=== PATIENT | male | born 1970 | race Caucasian/White ===

== ENCOUNTER 2017-08-11 20:02 | Observation (INO) | payer BC ==
[2017-08-11 20:13] VITALS: BMI 34.2
--- NOTE | 2017-08-11 20:42 | PDOC ---
History of Present Illness - General History Source: Patient Exam Limitations: No Limitations - History of Present Illness Initial Comments: 08/11/17 22:15 The patient is a 47 year old male with a significant past medical history of HTN , HLD, and GERD who presents to the ED with chest pain since earlier today. The patient states he was working out on the elliptical at the gym when he developed mid sternal chest pain that radiates to his back and left shoulder blade. Patient states his chest pain is pressure like in sensation.He reports his heart rate was 223 while he was working out but states is it usually in the 160s when he works out. He notes he took his metoprolol after leaving the gym but states he hasn't taken it since Saturday. Patient states he had an Echo several months ago that showed an enlarged aorta and bicuspid valve. Social hx: Patient regularly works out at the gym and reports a 40 pound weight loss. The patient smokes half a pack of cigarettes everyday for the past 2 years. He also smokes marijuana daily and states he last smoked marijuana earlier today. <Tony Burns - Last Filed: 08/11/17 22:14> <Chanel Bullock - Last Filed: 08/11/17 23:32> - General Chief Complaint: Chest Pain Stated Complaint: CHEST PAIN Time Seen by Provider: 08/11/17 20:23 Past History <Tony Burns - Last Filed: 08/11/17 22:14> - Past Medical History COPD: No HTN: Yes Hypercholesterolemia: Yes Kidney Stones: Yes - Surgical History Abdominal Surgery: No - Suicide/Smoking/Psychosocial Hx Smoking Status: No Smoking History: Never smoked Have you smoked in the past 12 months: No Number of Cigarettes Smoked Daily: 10 Information on smoking cessation initiated: No Hx Alcohol Use: No Drug/Substance Use Hx: No Substance Use Type: None Hx Substance Use Treatment: No <Chanel Bullock - Last Filed: 08/11/17 23:32> - Past Medical History Allergies/Adverse Reactions: Allergies Allergy/AdvReac Type Severity Reaction Status Date / Time No Known Allergies Allergy Verified 08/11/17 20:06 Home Medications: Ambulatory Orders Acetaminophen [Tylenol] 650 mg PO Q6H PRN #0 tablet 04/21/12 Aspirin [ASA -] 325 mg PO DAILY #0 tablet 04/21/12 Hydromorphone HCl [Dilaudid] 2 mg PO PRN PRN #0 tablet 04/21/12 Metoprolol Tartrate [Lopressor -] 50 mg PO BID #0 tablet 04/21/12 Tamsulosin HCl [Flomax -] 0.4 mg PO DAILY #7 cap.er.24h 04/21/12 levoFLOXacin [Levaquin] 250 mg PO DAILY #0 tablet 04/21/12 Review of Systems - Review of Systems Able to Perform ROS?: Yes Comments:: 08/11/17 22:15 CONSTITUTIONAL: Absent: fever, chills, diaphoresis, generalized weakness, malaise, loss of appetite HEENT: Absent: rhinorrhea, nasal congestion, throat pain, throat swelling, difficulty swallowing, mouth swelling, ear pain, eye pain, visual Changes CARDIOVASCULAR: + chest pain with radiation to the back and left shoulder blade Absent: syncope, palpitations, irregular heart rate, lightheadedness, peripheral edema RESPIRATORY: Absent: cough, shortness of breath, dyspnea with exertion, orthopnea, wheezing, stridor, hemoptysis GASTROINTESTINAL: Absent: abdominal pain, abdominal distension, nausea, vomiting, diarrhea, constipation, melena, hematochezia GENITOURINARY: Absent: dysuria, frequency, urgency, hesitancy, hematuria, flank pain, genital pain MUSCULOSKELETAL: Absent: joint swelling SKIN: Absent: rash, itching, pallor HEMATOLOGIC/IMMUNOLOGIC: Absent: easy bleeding, easy bruising, lymphadenopathy, frequent infections ENDOCRINE: Absent: unexplained weight gain, unexplained weight loss, heat intolerance, cold intolerance NEUROLOGIC: Absent: headache, focal weakness or paresthesias, dizziness, unsteady gait, seizure, mental status changes, bladder or bowel incontinence PSYCHIATRIC: Absent: anxiety, depression, suicidal or homicidal ideation, hallucinations. All Other Systems: Reviewed and Negative <Tony Burns - Last Filed: 08/11/17 22:14> *Physical Exam - Vital Signs Last Vital Signs Temp Pulse Resp BP Pulse Ox 97.8 F 73 18 121/74 98 08/11/17 20:09 08/11/17 20:09 08/11/17 20:09 08/11/17 21:58 08/11/17 20:09 - Physical Exam Comments: 08/11/17 22:15 GENERAL: Well developed, well nourished. Awake and alert. No acute distress. HEENT: Normocephalic, atraumatic. PERRLA, EOMI. No conjunctival pallor. Sclera are non- icteric. Moist mucous membranes. Oropharynx is clear. NECK: Supple. Full ROM. No JVD. Carotid pulses 2+ and symmetric, without bruits. No thyromegaly. No lymphadenopathy. CARDIOVASCULAR: Regular rate and rhythm. No murmurs, rubs, or gallops. Distal pulses are 2+ and symmetric. PULMONARY: No evidence of respiratory distress. Lungs clear to auscultation bilaterally. No wheezing, rales or rhonchi. ABDOMINAL: Soft. Non-tender. Non-distended. No rebound or guarding. No organomegaly. Normoactive bowel sounds. MUSCULOSKELETAL Normal range of motion at all joints. No bony deformities or tenderness. No CVA tenderness. EXTREMITIES: No cyanosis. No clubbing. No edema. No calf tenderness. SKIN: Warm and dry. Normal capillary refill. No rashes. No jaundice. NEUROLOGICAL: Alert, awake, appropriate. Cranial nerves 2-12 intact. No deficits to light touch and temperature in face, upper extremities and lower extremities. No motor deficits in the in face, upper extremities and lower extremities. Normoreflexic in the upper and lower extremities. Normal speech. Toes are down- going bilaterally. Gait is normal without ataxia. PSYCHIATRIC: Cooperative. Good eye contact. Appropriate mood and affect. <Tony Burns - Last Filed: 08/11/17 22:14> - Vital Signs Last Vital Signs Temp Pulse Resp BP Pulse Ox 97.8 F 73 18 151/82 98 08/11/17 20:09 08/11/17 20:09 08/11/17 20:09 08/11/17 20:09 08/11/17 20:09 <Chanel Bullock - Last Filed: 08/11/17 23:32> Heart Score/ECG Review - History History: Slightly suspicious - Electrocardiogram EKG: Normal - Age Age: 45-65 - Risk Factors Risk Factors Heart Score: Yes Hx Hypercholesterolemia, Yes Hx Hypertension Based on the list above the patient has:: >/=3 risk factors or Hx atherosclerotic disease - Troponin Troponin: </= normal limit - Score Heart Score - Total: 3 - ECG Intrepretation Rhythm: Regular Rhythm - Falcon Falcon: Normal - ST and T Early Repolarization: No Non Specific ST-T Wave changes: No - ECG Impressions Normal ECG: Yes Ischemic Changes: No Torsades fly Pointes: No WPW: No Comment:: 08/11/17 20:42 PREMATURE ATRIAL CONTRACTIONS <Chanel Bullock - Last Filed: 08/11/17 23:32> ED Treatment Course - Medications Given in the ED: ED Medications Discontinued Medications Generic Name Dose Route Start Last Admin Trade Name Apurva PRN Reason Stop Dose Admin Aspirin 162 mg 08/11/17 20:56 08/11/17 21:58 Asa - PO 08/11/17 20:57 162 mg ONCE ONE Administration Metoprolol Tartrate 5 mg 08/11/17 20:55 08/11/17 21:58 Lopressor Injection - IVPUSH 08/11/17 20:56 Not Given ONCE ONE <Tony Burns - Last Filed: 08/11/17 22:14> - LABORATORY CBC & Chemistry Diagram: 08/11/17 21:43 08/11/17 21:43 - RADIOLOGY Radiology Studies Ordered: Category Date Time Status CHEST PA & LAT [RAD] Stat Radiology 08/11/17 20:25 Ordered <Chanel Bullock - Last Filed: 08/11/17 23:32> Medical Decision Making - Medical Decision Making 08/11/17 22:02 Pt missed a couple days of his [id number] and went to the gym today. He felt CP and noticed that his HR was up to 200s. Pt went home and the HR lasted. He took his toprol and came to the ER. Here BP was elevated on arrival. EKG is NSR.CXR pending. Labs pending. 08/11/17 23:26 Pt of Katelyn Carvajal. I called her covering doc Dr. Leslie who wants me to admit the patient to tele obs under the hospitalist. Pt has a normal 1st cardiac enzyme and currently feels better. ASA and toprol given to the patient. <Chanel Bullock - Last Filed: 08/11/17 23:32> *DC/Admit/Observation/Transfer - Attestations Scribe Attestion: 08/11/17 22:15 Documentation prepared by Tony Burns, acting as medical research assistant for Chanel Bullock MD <Tony Burns Last Filed: 08/11/17 22:14> - Discharge Dispostion Admit: Yes <Chanel Bullock - Last Filed: 08/11/17 23:32> Diagnosis at time of Disposition: Chest pain - Discharge Dispostion Condition at time of disposition: Guarded - Referrals Referrals: Katelyn Carvajal MD [Primary Care Provider] - - Patient Instructions - Post Discharge Activity
[2017-08-11] MEDS ORDERED: METOPROLOL TARTRATE 5 MG/5 ML VIAL IVPUSH ONE (20:55)
[2017-08-11] MEDS ORDERED: ASPIRIN 81 MG CHEWABLE TABLETS PO ONE (20:56)
[2017-08-11] MEDS ORDERED: METOPROLOL TARTRATE 5 MG/5 ML VIAL ONE (21:45)
[2017-08-11] MEDS ORDERED: ASPIRIN 81 MG CHEWABLE TABLETS ONE (21:45)
[2017-08-11 22:46] LABS: BASO % 0.9 % (0-2.0); EOS % 2.9 % (0-4.5); HEMATOCRIT 38.8 % (35.4-49); HEMOGLOBIN 13.4 GM/dL (11.7-16.9); LYMPH % 31.3 % (8-40); MCH 30.3 pg (25.7-33.7); MCHC 34.5 g/dl (32.0-35.9); MEAN CELL VOLUME 87.7 fl (80-96); MEAN PLT VOLUME 8.2 fl (7.5-11.1); MONO % 10.3 % (3.8-10.2); NEUT % 54.6 % (42.8-82.8); PLATELET COUNT 252 K/MM3 (134-434); RBC 4.42 M/mm3 (4.00-5.60); RDW 14.2 % (11.9-15.9)
[2017-08-11 23:02] LABS: INR 1.07 (0.82-1.09); PROTHROMBIN TIME (PATIENT) 12.1 SEC (9.7-13.0)
[2017-08-11 23:08] LABS: ALBUMIN 3.5 g/dl (3.4-5.0); ANION GAP 5 (8-16); BILIRUBIN,TOTAL 0.2 mg/dL (0.2-1.0); BLOOD UREA NITROGEN 17 mg/dL (7-18); CALCIUM 8.5 mg/dL (8.5-10.1); CHLORIDE 109 mmol/L (98-107); CO2 27 mmol/L (21-32); CREATININE 0.9 mg/dL (0.7-1.3); GLUCOSE,RANDOM 86 mg/dL (74-106); POTASSIUM 3.9 mmol/L (3.5-5.1); SGOT/AST 14 U/L (15-37); SGPT/ALT 17 U/L (12-78); SODIUM 141 mmol/L (136-145); TOT PROT 6.4 g/dl (6.4-8.2)
[2017-08-11 23:10] LABS: ALK PHOS 66 U/L (45-117)
--- NOTE | 2017-08-11 23:32 | PN ---
Teaching Attending Note Name of Resident: Suzanne Paz ATTENDING PHYSICIAN STATEMENT I saw and evaluated the patient. I reviewed the resident's note and discussed the case with the resident. I agree with the resident's findings and plan as documented. SUBJECTIVE: 47 yo M with pmhx. of HTN, HLD, and GERD who presents with chest pain. States he was working out when he had his chest pain. States his pain is more pressure like. Notes when he was working out his HR went to 223. Notes prior to today, he had not taken his Metoprolol since Saturday. States his last echo was a couple of months ago. OF note as per patient chest pressure was mid-sternal and NON- RADIATING. States his pain went away after several minutes and has not reoccurred. Denies any shortness of breath, chest pain, or pressure. No N, V, D. States he was on the Elliptical when the chest pressure happened OBJECTIVE: Physical: VS: Vital Signs Period Temp Pulse Resp BP Sys/Blair Pulse Ox Last 24 Hr 97.8 F 73 18 121-151/74-82 98-100 GEN: NAD, obese male, resting in bed, AAOX3 HEENT: NCAT, PERRL, Throat without erythema or exudates CARD: RRR S1, S2 RESP: CTAB ABD: BSx4, NTD to palpation EXT: - C/C/E CBCD WBC 8.0 K/mm3 (4.0-10.0) 08/11/17 21:43 RBC 4.42 M/mm3 (4.00-5.60) 08/11/17 21:43 Hgb 13.4 GM/dL (11.7-16.9) 08/11/17 21:43 Hct 38.8 % (35.4-49) 08/11/17 21:43 MCV 87.7 fl (80-96) 08/11/17 21:43 MCHC 34.5 g/dl (32.0-35.9) 08/11/17 21:43 RDW 14.2 % (11.9-15.9) 08/11/17 21:43 Plt Count 252 K/MM3 (134-434) 08/11/17 21:43 MPV 8.2 fl (7.5-11.1) 08/11/17 21:43 CMP Sodium 141 mmol/L (136-145) 08/11/17 21:43 Potassium 3.9 mmol/L (3.5-5.1) 08/11/17 21:43 Chloride 109 mmol/L (98-107) H 08/11/17 21:43 Carbon Dioxide 27 mmol/L (21-32) 08/11/17 21:43 Anion Gap 5 (8-16) L 08/11/17 21:43 BUN 17 mg/dL (7-18) D 08/11/17 21:43 Creatinine 0.9 mg/dL (0.7-1.3) D 08/11/17 21:43 Creat Clearance w eGFR > 60 (>60) 08/11/17 21:43 Random Glucose 86 mg/dL (74-106) 08/11/17 21:43 Calcium 8.5 mg/dL (8.5-10.1) 08/11/17 21:43 Total Bilirubin 0.2 mg/dL (0.2-1.0) D 08/11/17 21:43 AST 14 U/L (15-37) L D 08/11/17 21:43 ALT 17 U/L (12-78) 08/11/17 21:43 Alkaline Phosphatase 66 U/L (45-117) 08/11/17 21:43 Total Protein 6.4 g/dl (6.4-8.2) 08/11/17 21:43 Albumin 3.5 g/dl (3.4-5.0) 08/11/17 21:43 CARDIAC ENZYMES Creatine Kinase 99 IU/L (39-308) 08/11/17 21:43 Troponin I < 0.02 ng/ml (0.00-0.05) 08/11/17 21:43 EKG: CXR: PENDING ASSESSMENT AND PLAN: 47 yo M with pmhx. of HTN, HLD, and GERD who presents with chest pain. 1.) CHEST PAIN - RO ACS - Trend Trop/EKG - ASA - 02 - BB- Recieved Metoprolol in ED - Nitro/Morphine prn pain - TSH - Echo report 2. DVT Ppx - SCDs Place in Obs-Tele
[2017-08-12] MEDS ORDERED: NITROGLYCERIN SUBLINGUAL 1/150 0.4 MG TAB SL PRN (00:18)
--- NOTE | 2017-08-12 00:36 | HP ---
CHIEF COMPLAINT: Chest Pain PCP: Dr Katelyn Carvajal HISTORY OF PRESENT ILLNESS: 47yo M with PMHx of HTN, HLD, GERD who presented to the ER w/ chest pain. This AM after eating breakfast, he was at the gym using the elliptical when he developed midsternal chest pressure. He was wearing a HR monitor, noted his HR was in the 220s. When he rested, HR came down, and CP resolved. Denies SOB, diaphoresis, heartburn. [place] nauseous afterward. Never had CP before, never had HR >170s before. Not compliant w/ metoprolol. Sees a peanut vendor for HTN, told he has enlarged aorta and bicuspid aortic valve on echo. In the ER, he was hemodynamically stable. EKG shows q waves in inferior leads, unchanged from prior. CXR wnl. First set of trops neg. Pt was given lopressor 5 and loading ASA. Recent Travel: Denies PAST MEDICAL HISTORY: HTN, HLD, GERD PAST SURGICAL HISTORY: Foot surgery Social History: Smokin.5ppd smoker for 2 years Alcohol: Denies Drugs: Marijuana daily Family History: Allergies No Known Allergies Allergy (Verified 08/11/17 20:06) HOME MEDICATIONS: Home Medications Medication Instructions Recorded Acetaminophen [Tylenol] 650 mg PO Q6H PRN #0 tablet 04/21/12 Aspirin [ASA -] 325 mg PO DAILY #0 tablet 04/21/12 Hydromorphone HCl [Dilaudid] 2 mg PO PRN PRN #0 tablet 04/21/12 Metoprolol Tartrate [Lopressor -] 50 mg PO BID #0 tablet 04/21/12 Tamsulosin HCl [Flomax -] 0.4 mg PO DAILY #7 cap.er.24h 04/21/12 REVIEW OF SYSTEMS CONSTITUTIONAL: Absent: fever, chills, diaphoresis, generalized weakness, malaise, loss of appetite, weight change HEENT: Absent: rhinorrhea, nasal congestion, throat pain, throat swelling, difficulty swallowing, mouth swelling, ear pain, eye pain, visual changes CARDIOVASCULAR: Absent: chest pain, syncope, palpitations, irregular heart rate , lightheadedness, peripheral edema RESPIRATORY: Absent: cough, shortness of breath, dyspnea with exertion, orthopnea, wheezing, stridor, hemoptysis GASTROINTESTINAL:Absent: abdominal pain, abdominal distension, nausea, vomiting , diarrhea, constipation, melena, hematochezia GENITOURINARY: Absent: dysuria, frequency, urgency, hesitancy, hematuria, flank pain, genital pain MUSCULOSKELETAL: Absent: myalgia, arthralgia, joint swelling, back pain, neck pain SKIN: Absent: rash, itching, pallor HEMATOLOGIC/IMMUNOLOGIC: Absent: easy bleeding, easy bruising, lymphadenopathy, frequent infections ENDOCRINE:Absent: unexplained weight gain, unexplained weight loss, heat intolerance, cold intolerance NEUROLOGIC: Absent: headache, focal weakness or paresthesias, dizziness, unsteady gait, seizure, mental status changes, bladder or bowel incontinence PSYCHIATRIC: Absent: anxiety, depression, suicidal or homicidal ideation, hallucinations. PHYSICAL EXAMINATION Vital Signs Period Temp Pulse Resp BP Sys/Blair Pulse Ox Last 24 Hr 97.8 F 73 18 121-151/74-82 98-100 GEN: AAOx3, NAD, distant affect HEENT: PERRLA, EOmi, no JVD CV: S1, S2, RRR w/ extra beats LUNG: CTABL ABD: OBese, distended, nontender MSK: No edema, no erythema NEURO: CN 2-12 intact, no snsation or msk deficits ASSESSMENT/PLAN: 47yo M with PMHx of HTN, HLD, GERD who presented to the ER w/ chest pain after working out # Chest Pain -- Most likely demand from tachycardia (above maximum HR for age). HEART score 3 indicates low risk. R/o ACS, observe until second trop. O2. Nitro prn. TSH. Monitor on tele. # Hx of HTN -- Non-compliant w/ meds, given Lopressor in ER. Continue home meds # ?Bicuspid Aortic Valve -- On outpatient echo as per patient. No need to repeat echo here. Can obtain records if needed # HLD -- Continue crestor # MDD -- Continue antidepressants # FEN/pPx -- No ivf, sodium controlled diet, SCDs # Dispo -- Tele obs Case d/w Dr Paz & Dr Mike Maravilla MD - [id number] Night Chief Analytics Officer Visit type - Emergency Visit Emergency Visit: Yes ED Registration Date: 08/11/17 Care time: The patient presented to the Emergency Department on the above date and was hospitalized for further evaluation of their emergent condition. - New Patient This patient is new to me today: No - Critical Care Critical Care patient: No Hospitalist Screening - Colonoscopy Questionnaire Colonoscopy Questionnaire: Colonoscopy Questionnaire - Patient: 50 - 75 years old and never had a screening colonoscopy: Unknown History of colon or rectal polyps, or CA: Unknown History of IBD, Crohn's disease or UC: Unknown History of abdominal radiation therapy as a child: Unknown - Relative: 1 with colon or rectal CA, or polyps at age 60 or younger: Unknown Colon or rectal CA diagnosed at age 45 or younger: Unknown Multiple relatives with colon or rectal CA: Unknown - Outcome: Screening Result: Negative Screen
[2017-08-12 06:13] LABS: HEMATOCRIT 39.5 % (35.4-49); HEMOGLOBIN 13.4 GM/dL (11.7-16.9); MCH 29.4 pg (25.7-33.7); MCHC 33.9 g/dl (32.0-35.9); MEAN CELL VOLUME 86.8 fl (80-96); MEAN PLT VOLUME 7.7 fl (7.5-11.1); PLATELET COUNT 263 K/MM3 (134-434); RBC 4.54 M/mm3 (4.00-5.60); RDW 14.2 % (11.9-15.9); WHITE BLOOD COUNT 6.2 K/mm3 (4.0-10.0)
[2017-08-12 06:42] LABS: ANION GAP 5 (8-16); BLOOD UREA NITROGEN 15 mg/dL (7-18); CALCIUM 8.1 mg/dL (8.5-10.1); CHLORIDE 110 mmol/L (98-107); CO2 26 mmol/L (21-32); GLUCOSE,RANDOM 88 mg/dL (74-106); MAGNESIUM 2.2 mg/dL (1.8-2.4); POTASSIUM 3.9 mmol/L (3.5-5.1); SODIUM 141 mmol/L (136-145)
[2017-08-12 06:53] LABS: CREATININE 0.8 mg/dL (0.7-1.3); PHOSPHOROUS 3.3 mg/dL (2.5-4.9)
[2017-08-12 09:33] VITALS: BP 137/72; PULSE 72; TEMP 98
[2017-08-12] MEDS ORDERED: ASPIRIN 81 MG CHEWABLE TABLETS PO SCH (10:00)
[2017-08-12] MEDS ORDERED: METOPROLOL TARTRATE 50 MG TABLET (FP) PO SCH (10:00)
[2017-08-12] MEDS ORDERED: ESCITALOPRAM OXALATE 20 MG TABLET (FP) PO SCH (10:00)
--- NOTE | 2017-08-12 10:42 | EKG ---
Test Reason : Blood Pressure : / mmHG Vent. Rate : 075 BPM Atrial Rate : 075 BPM P-R Int : 172 ms QRS Dur : 096 ms QT Int : 408 ms P-R-T Axes : 045 -02 040 degrees QTc Int : 455 ms SINUS RHYTHM WITH PREMATURE ATRIAL COMPLEXES INFERIOR INFARCT , AGE UNDETERMINED ABNORMAL ECG WHEN COMPARED WITH ECG OF 02-OCT-2011 12:46, PREMATURE ATRIAL COMPLEXES ARE NOW PRESENT NONSPECIFIC T WAVE ABNORMALITY NO LONGER EVIDENT IN LATERAL LEADS Confirmed by YARIEL BURRELL MD ([id number]) on 08/12/2017 10:41:54 AM Referred By: Confirmed By:YARIEL BURRELL MD
--- NOTE | 2017-08-12 14:27 | PN ---
Teaching Attending Note Name of Resident: Taylor Jose Bailey ATTENDING PHYSICIAN STATEMENT I saw and evaluated the patient. I reviewed the resident's note and discussed the case with the resident. I agree with the resident's findings and plan as documented. SUBJECTIVE: OBJECTIVE: Vital Signs Period Temp Pulse Resp BP Sys/Blair Pulse Ox Last 24 Hr 97.7 F-98.0 F 72-77 18-19 121-151/62-82 98-100 Laboratory Results - last 24 hr 08/11/17 08/11/17 08/11/17 21:43 21:43 21:43 WBC 8.0 RBC 4.42 Hgb 13.4 Hct 38.8 MCV 87.7 MCH 30.3 MCHC 34.5 RDW 14.2 Plt Count 252 MPV 8.2 Neutrophils % 54.6 D Lymphocytes % 31.3 D Monocytes % 10.3 H D Eosinophils % 2.9 D Basophils % 0.9 D PT with INR 12.10 INR 1.07 PTT (Actin FS) Sodium 141 Potassium 3.9 Chloride 109 H Carbon Dioxide 27 Anion Gap 5 L BUN 17 D Creatinine 0.9 D Creat Clearance w eGFR > 60 Random Glucose 86 Calcium 8.5 Phosphorus Magnesium Total Bilirubin 0.2 D AST 14 L D ALT 17 Alkaline Phosphatase 66 Creatine Kinase 99 Troponin I < 0.02 Total Protein 6.4 Albumin 3.5 TSH 08/11/17 08/12/17 08/12/17 21:58 05:56 05:56 WBC 6.2 RBC 4.54 Hgb 13.4 Hct 39.5 MCV 86.8 MCH 29.4 MCHC 33.9 RDW 14.2 Plt Count 263 MPV 7.7 Neutrophils % Lymphocytes % Monocytes % Eosinophils % Basophils % PT with INR INR PTT (Actin FS) 26.7 L Sodium 141 Potassium 3.9 Chloride 110 H Carbon Dioxide 26 Anion Gap 5 L BUN 15 Creatinine 0.8 Creat Clearance w eGFR Random Glucose 88 Calcium 8.1 L Phosphorus 3.3 Magnesium 2.2 Total Bilirubin AST ALT Alkaline Phosphatase Creatine Kinase Troponin I Total Protein Albumin TSH 1.03 08/12/17 05:56 WBC RBC Hgb Hct MCV MCH MCHC RDW Plt Count MPV Neutrophils % Lymphocytes % Monocytes % Eosinophils % Basophils % PT with INR INR PTT (Actin FS) Sodium Potassium Chloride Carbon Dioxide Anion Gap BUN Creatinine Creat Clearance w eGFR Random Glucose Calcium Phosphorus Magnesium Total Bilirubin AST ALT Alkaline Phosphatase Creatine Kinase 83 Troponin I < 0.02 Total Protein Albumin TSH ASSESSMENT AND PLAN:
--- NOTE | 2017-08-12 21:27 | DS ---
Physical Exam: SUBJECTIVE: Patient seen and examined. Patient feels better this am. No chest pain or shortness of breath, no new complaints. Repeat trops are negative. Would like to go home. OBJECTIVE: Vital Signs Period Temp Pulse Resp BP Sys/Blair Pulse Ox Last 24 Hr 97.7 F-98.0 F 72-77 18-19 121-137/62-74 98-99 Vital Signs Temp 98.0 F 08/12/17 09:32 Pulse 72 08/12/17 09:32 Resp 18 08/12/17 09:32 BP 137/72 08/12/17 09:32 Pulse Ox 98 08/12/17 09:32 PHYSICAL EXAM GENERAL: The patient is awake, alert, and fully oriented, in no acute painful or respiratory distress. EYES: PERRL, extraocular movements intact ENT: moist mucous membranes. NECK: supple. LUNGS: Breath sounds equal, clear to auscultation bilaterally HEART: Regular rate and rhythm, S1, S2 without murmur, rub or gallop. ABDOMEN: Soft, nontender, nondistended, normoactive bowel sounds EXTREMITIES: 2+ pulses, warm, well-perfused, no edema. NEUROLOGICAL: Cranial nerves II through XII grossly intact. Normal speech, normal gait LABS CBC, BMP 08/12/17 05:56 08/12/17 05:56 Laboratory Results - last 24 hr 08/11/17 08/11/17 08/11/17 21:43 21:43 21:43 WBC 8.0 RBC 4.42 Hgb 13.4 Hct 38.8 MCV 87.7 MCH 30.3 MCHC 34.5 RDW 14.2 Plt Count 252 MPV 8.2 Neutrophils % 54.6 D Lymphocytes % 31.3 D Monocytes % 10.3 H D Eosinophils % 2.9 D Basophils % 0.9 D PT with INR 12.10 INR 1.07 PTT (Actin FS) Sodium 141 Potassium 3.9 Chloride 109 H Carbon Dioxide 27 Anion Gap 5 L BUN 17 D Creatinine 0.9 D Creat Clearance w eGFR > 60 Random Glucose 86 Calcium 8.5 Phosphorus Magnesium Total Bilirubin 0.2 D AST 14 L D ALT 17 Alkaline Phosphatase 66 Creatine Kinase 99 Troponin I < 0.02 Total Protein 6.4 Albumin 3.5 TSH 08/11/17 08/12/17 08/12/17 21:58 05:56 05:56 WBC 6.2 RBC 4.54 Hgb 13.4 Hct 39.5 MCV 86.8 MCH 29.4 MCHC 33.9 RDW 14.2 Plt Count 263 MPV 7.7 Neutrophils % Lymphocytes % Monocytes % Eosinophils % Basophils % PT with INR INR PTT (Actin FS) 26.7 L Sodium 141 Potassium 3.9 Chloride 110 H Carbon Dioxide 26 Anion Gap 5 L BUN 15 Creatinine 0.8 Creat Clearance w eGFR Random Glucose 88 Calcium 8.1 L Phosphorus 3.3 Magnesium 2.2 Total Bilirubin AST ALT Alkaline Phosphatase Creatine Kinase Troponin I Total Protein Albumin TSH 1.03 08/12/17 05:56 WBC RBC Hgb Hct MCV MCH MCHC RDW Plt Count MPV Neutrophils % Lymphocytes % Monocytes % Eosinophils % Basophils % PT with INR INR PTT (Actin FS) Sodium Potassium Chloride Carbon Dioxide Anion Gap BUN Creatinine Creat Clearance w eGFR Random Glucose Calcium Phosphorus Magnesium Total Bilirubin AST ALT Alkaline Phosphatase Creatine Kinase 83 Troponin I < 0.02 Total Protein Albumin TSH HOSPITAL COURSE: Date of Admission:08/11/17 Date of Discharge: 08/12/17 Pt is a 47 yo M with PMHx of HTN, HLD, GERD who presented to the ER with a hx of chest pain while working out in the gym # Chest Pain -- Most likely demand from tachycardia (220bpm-above maximum HR for age). Resolved prior to presentation in the ED HEART score 3 indicates low risk. R/o ACS, first and second trop were negative. O2 PRN. Nitro prn. TSH. Monitor on tele. Follow up with audiology assistant for likely stress test # Hx of HTN -- Non-compliant w/ meds, Given Lopressor in ER. Continue home meds Follow up with audiology assistant as an outpatient # Hx of Bicuspid Aortic Valve -- Diagnosed per px on outpatient echo # HLD -- Continue crestor # MDD -- Continue antidepressants # FEN/pPx -- sodium controlled diet, Minutes to complete discharge: 37 Discharge Summary Reason For Visit: CHEST PAIN Condition: Stable - Instructions Diet, Activity, Other Instructions: You were seen here for chest pain and rapid heart rate while exercising in the gym We ran tests that did not show any heart damage suggestive of a heart attack Please follow up with your audiology assistant (Shay Garcia) to have a stress test done on SaturdayAugust 19 at 4.30pm at [address] [place] [address] (the appointment has been made for you) Please resume your home medications for hypertension, high lipids and GERD Follow up with your primary care doctor within a week If you have worsening symptoms, please return to the emergency room Referrals: Katelyn Carvajal MD [Primary Care Provider] - 1 Week Disposition: HOME - Home Medications Comprehensive Discharge Medication List: Ambulatory Orders Bupropion HCl [Wellbutrin Sr] 150 mg PO DAILY 08/12/17 Escitalopram Oxalate [Lexapro -] 20 mg PO DAILY 08/12/17 Metoprolol Tartrate [Lopressor -] 50 mg PO DAILY 08/12/17 Rosuvastatin Calcium [Crestor] 10 mg PO HS 08/12/17 This patient is new to me today: Yes Date on this admission: 08/12/17 Emergency Visit: Yes ED Registration Date: 08/11/17 Care time: The patient presented to the Emergency Department on the above date and was hospitalized for further evaluation of their emergent condition. Critical Care patient: No - Discharge Referral Referred to [facility] No
[2017-08-12] MEDS ORDERED: ROSUVASTATIN CA 10 MG TABLET (FP) PO SCH (22:00)
== END 2017-08-12 09:33 | disposition home or self-care (01) ==
LOC: JER 20:02 → JERBED 23:32
PROVIDERS: ADMIT Internal Medicine; ATTEND Internal Medicine
DX: R07.9 Chest pain, unspecified (principal); I10 Essential (primary) hypertension; E78.5 Hyperlipidemia, unspecified; K21.9 Gastro-esophageal reflux disease without esophagitis; F33.9 Major depressive disorder, recurrent, unspecified; Z79.82 Long term (current) use of aspirin
CPT/HCPCS: 36415; 71046-TC-FY; 80048; 80053; 82550; 83735; 84100; 84443; 84484; 85025; 85027; 85610; 85730; 93005; 93010; 99285-25; G0378

== ENCOUNTER 2024-09-03 05:51 | Day surgery (SDC) | payer OTHER ==
[2024-08-27 11:49] VITALS: BMI 32.5
[2024-09-03 08:46] VITALS: TEMP 97.5
[2024-09-03 09:15] VITALS: PULSE 73
[2024-09-03 09:17] VITALS: BP 130/66; RESP 14
== END 2024-09-03 09:19 | disposition home or self-care (01) ==
LOC: JASU-ENDO 05:51
PROVIDERS: ATTEND Internal Medicine Gastroenterology
PROC: 0DBP8ZX Excision of Rectum, Via Natural or Artificial Opening Endoscopic, Diagnostic (ICD-10-PCS; principal; 2024-09-03 08:00)
DX: Z12.11 Encounter for screening for malignant neoplasm of colon (principal); D12.8 Benign neoplasm of rectum; K57.30 Diverticulosis of large intestine without perforation or abscess without bleeding; Z86.0100 Personal history of colon polyps, unspecified; Z80.0 Family history of malignant neoplasm of digestive organs
CPT/HCPCS: 88305-TC